=== PATIENT | male | born 1995 | race Caucasian/White ===

== ENCOUNTER 2019-10-27 17:34 | Emergency (ER) | payer SELFPAY ==
[~2019-10-27] VITALS: Ht 182.8 cm; Wt 113.4 kg
[2019-10-27] MEDS ORDERED: IBU800 MG PO (19:32)
[2019-10-27] MEDS ORDERED: METHOCARBAMOL500 M1 PO (19:32)
== END 2019-10-27 19:41 | disposition home or self-care (01) ==
LOC: ED 17:34
DX: S39.012A Strain of muscle, fascia and tendon of lower back, initial encounter (principal); F17.220 Nicotine dependence, chewing tobacco, uncomplicated; X50.0XXA Overexertion from strenuous movement or load, initial encounter; Y93.89 Activity, other specified; Y92.89 Other specified places as the place of occurrence of the external cause; Y99.8 Other external cause status

== ENCOUNTER 2023-08-11 18:15 | Emergency (ER) | payer MEDICAID ==
[~2023-08-11 18:15] MED LIST: IBU800 MG PO; METHOCARBAMOL500 M1 PO
[2023-08-11] MEDS ORDERED: PREDNISONE20 M1 PO (20:41)
== END 2023-08-11 21:14 | disposition home or self-care (01) ==
LOC: ED 18:15
DX: S93.401A Sprain of unspecified ligament of right ankle, initial encounter (principal); M79.89 Other specified soft tissue disorders; X58.XXXA Exposure to other specified factors, initial encounter; Y93.89 Activity, other specified; Y92.009 Unspecified place in unspecified non-institutional (private) residence as the place of occurrence of the external cause; Y99.8 Other external cause status

== ENCOUNTER 2024-01-17 22:06 | Emergency (ER) | payer MEDICAID ==
[~2024-01-17] VITALS: Wt 86.2 kg
[~2024-01-17 22:06] MED LIST changes: +PREDNISONE20 M1 PO
== END 2024-01-17 23:46 | disposition home or self-care (01) ==
LOC: ED 22:06
DX: B34.9 Viral infection, unspecified (principal); Z20.822 Contact with and (suspected) exposure to COVID-19

== ENCOUNTER → 2025-09-13 | Outpatient (CLI) | payer MEDICAID ==
[2025-09-13 10:32] LABS: MEAN CELL VOLUME 90.8 fl (80.0-94.0); MEAN CORPUSCULAR HGB 30.1 pg (27.0-31.0); MEAN PLATELET VOLUME 8.7 fl (9.6-12.3); NUCLEATED RED BLOOD CELL 0.0 % (0.0-0.0); NUCLEATED RED BLOOD CELL 0.0 10*3/uL (0.0-0.0); PLATELET COUNT AUTOMATED 304.0 10*3/uL (130-400); RED CELL DISTRI WIDTH 12.3 % (0-14.5)
[2025-09-13 10:56] LABS: BUN 11 mg/dl (9-23); LDL CHOLESTEROL 139 mg/dL (9-159); SGPT/ALT 33 U/L (5-49)
== END | disposition home or self-care (01) ==
LOC: LAB 10:15
PROVIDERS: ATTEND Family Medicine
DX: E78.00 Pure hypercholesterolemia, unspecified (principal); Z00.00 Encounter for general adult medical examination without abnormal findings